=== PATIENT | male | born 1990 | race Two or more races ===

== ENCOUNTER → 2016-08-19 | Outpatient (REF) | payer OTHER ==
[2016-08-19 13:15] LABS: BASO # 0.1 K/mm3 (0.0-0.2); BASO % 1.6 % (0.0-1.0); EOS # 0.2 K/mm3 (0.0-0.50); LARGE UNSTAINED CELL # 0.1 K/mm3 (0.0-0.4); LARGE UNSTAINED CELL % 2.4 % (0.0-4.0); LYMPH % 38.5 % (24.0-44.0); MEAN CORPUSCULAR HEMOGLOBIN 30.5 pg (27.0-33.0); MEAN CORPUSCULAR HGB CONC 33.6 g/dl (32.0-36.5); MEAN CORPUSCULAR VOLUME 90.5 fl (80.0-96.0); MONO # 0.4 K/mm3 (0.0-0.8); MONO % 7.8 % (0.0-5.0); NEUTROPHILS # 2.2 K/mm3 (1.8-7.7); NEUTROPHILS % 44.8 % (36.0-66.0); PLATELET COUNT, AUTOMATED 200 k/mm3 (150-450); RED CELL DISTRIBUTION WIDTH 12.4 % (11.5-14.5); WHITE BLOOD COUNT 4.9 K/mm3 (4.0-10.0)
[2016-08-19 13:55] LABS: ALBUMIN 3.9 GM/DL (3.2-5.2); ALKALINE PHOSPHATASE 71 U/L (45-117); ALT/SGPT 31 U/L (12-78); ANION GAP 7 MEQ/L (8-16); AST/SGOT 23 U/L (15-37); BILIRUBIN,TOTAL 0.5 MG/DL (0.2-1.0); BLOOD UREA NITROGEN 14 MG/DL (7-18); CALCIUM LEVEL 8.6 MG/DL (8.5-10.1); CARBON DIOXIDE LEVEL 27 MEQ/L (21-32); CHLORIDE LEVEL 108 MEQ/L (98-107); CHOLESTEROL LEVEL 208 MG/DL (<200); CREATININE FOR GFR 1.01 MG/DL (0.70-1.30); GLOMERULAR FILTRATION RATE > 60.0 (>60); GLUCOSE, FASTING 86 MG/DL (70-105); POTASSIUM SERUM 4.2 MEQ/L (3.5-5.1); SODIUM LEVEL 142 MEQ/L (136-145); TOTAL PROTEIN 6.3 GM/DL (6.4-8.2); TRIGLYCERIDES LEVEL 88 MG/DL (<150)
[2016-08-19 13:56] LABS: ALBUMIN/GLOBULIN RATIO 1.63 (1.00-1.93)
== END ==
LOC: M SFHCPLAZ 09:30
PROVIDERS: ATTEND Physician Assistant
DX: R42 Dizziness and giddiness (principal); Z13.220 Encounter for screening for lipoid disorders; R53.83 Other fatigue

== ENCOUNTER 2020-10-04 15:57 | Emergency (ER) | payer OTHER ==
[~2020-10-04] VITALS: Ht 170.2 cm; Wt 65.9 kg
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
[2020-10-04 20:22] VITALS: BP 131/90
== END 2020-10-04 20:23 | disposition home or self-care (01) ==
LOC: M ED 15:57
DX: S50.311A Abrasion of right elbow, initial encounter (principal); S30.810A Abrasion of lower back and pelvis, initial encounter; M25.511 Pain in right shoulder; V28.0XXA Motorcycle driver injured in noncollision transport accident in nontraffic accident, initial encounter; F17.200 Nicotine dependence, unspecified, uncomplicated

== ENCOUNTER 2022-10-05 18:11 | Emergency (ER) | payer MEDICARE, OTHER ==
[~2022-10-05] VITALS: Ht 175.3 cm; Wt 65.9 kg
[2022-10-05 18:12] VITALS: BP 137/93
[2022-10-05] MEDS ORDERED: FLUORESCEIN OPHTH 1MG STRIP OS ONE (19:40)
[2022-10-05] MEDS ORDERED: TETRACAINE 0.5% OPHTH SOLN 4ML OS ONE (19:40)
[2022-10-05] MEDS ORDERED: CIPROFLOXACIN 0.3% OPHTH SOLN 2.5ML OS STA (19:56)
[2022-10-05] MEDS ORDERED: BOOSTRIX VACCINE (TETANUS/DIPHTH/ACEL. PERTUSSIS) 0.5ML SYR IM ONE (20:00)
[2022-10-05] MEDS ORDERED: IBUPROFEN 800 MG TAB PO ONE (20:00)
[2022-10-05] MEDS ORDERED: CIPR0.3S37 OS (20:33)
== END 2022-10-05 20:45 | disposition home or self-care (01) ==
LOC: M ED 18:11
DX: S05.02XA Injury of conjunctiva and corneal abrasion without foreign body, left eye, initial encounter (principal); F17.200 Nicotine dependence, unspecified, uncomplicated; Z79.2 Long term (current) use of antibiotics

== ENCOUNTER 2023-03-11 00:25 | Emergency (ER) | payer OTHER ==
[~2023-03-11] VITALS: Ht 170.2 cm; Wt 63.2 kg
[~2023-03-11 00:25] MED LIST: CIPR0.3S37 OS
[2023-03-11 00:26] VITALS: BP 138/78; TEMP 99.5; O2SAT 100
[2023-03-11] MEDS ORDERED: CEPHALEXIN 500 MG CAP PO ONE (01:35)
[2023-03-11] MEDS ORDERED: IBUPROFEN 600MG TAB PO ONE (01:35)
[2023-03-11] MEDS ORDERED: ACETAMINOPHEN 500 MG TAB PO ONE (01:35)
== END 2023-03-11 01:52 | disposition left against medical advice (07) ==
LOC: M ED 00:25
DX: S60.455A Superficial foreign body of left ring finger, initial encounter (principal); F17.200 Nicotine dependence, unspecified, uncomplicated; Z53.9 Procedure and treatment not carried out, unspecified reason

== ENCOUNTER 2025-04-21 18:37 | Emergency (ER) | payer OTHER ==
[~2025-04-21] VITALS: Ht 172.7 cm; Wt 65.9 kg
[2025-04-21 18:38] VITALS: BP 136/78; TEMP 97.1; O2SAT 100
[2025-04-21] MEDS ORDERED: CEPH500C PO (19:24)
[2025-04-21] MEDS: TETANUS/DIPHTH/ACEL. PERTUSSIS 0.5 ML SYR IM ONE (19:25)
[2025-04-21] MEDS: CEFUROXIME 500 MG TAB PO ONE (19:36)
== END 2025-04-21 19:40 | disposition home or self-care (01) ==
LOC: M ED 18:37
DX: S61.412A Laceration without foreign body of left hand, initial encounter (principal); W26.0XXA Contact with knife, initial encounter; F17.200 Nicotine dependence, unspecified, uncomplicated; Y92.009 Unspecified place in unspecified non-institutional (private) residence as the place of occurrence of the external cause; Y93.89 Activity, other specified; Y99.9 Unspecified external cause status; Z79.2 Long term (current) use of antibiotics